=== PATIENT | male | born 1960 | race Caucasian/White ===

== ENCOUNTER 2020-06-07 13:48 | Emergency (ER) | payer OTHER ==
[~2020-06-07] VITALS: Ht 170.2 cm; Wt 95.0 kg
[2020-06-07 13:55] VITALS: BP 139/90
--- NOTE | 2020-06-07 14:14 | PHYS DOC ---
Past History Past Medical History: Hypertension, Other Additional Past Medical Histor: had a run of SVT in Feb. (TERI PARSON ASSOCIATE PASTOR) Past Surgical History: No Surgical History (TERI PARSON ASSOCIATE PASTOR) Alcohol Use: Occasionally (TERI PARSON ASSOCIATE PASTOR) Adult General Chief Complaint Chief Complaint: RIB PAIN HPI HPI Patient is a 59 year old male who presents with tripped onto wooden stairs and landed on his left side injuring his left lower and left ribs. He states it hurts to take a deep breath. He denies hitting his head, loss of consciousness, dizziness, chest pain, shortness of breath, abdominal pain, nausea, vomiting, vision changes, focal weakness, numbness or tingling, neck pain, back pain, headache. He rates his left rib pains a 6 out of 10 at its aching type pain. He states it hurts mostly with movement. Patient has a history of SVT and hypertension. He takes metoprolol daily. (TERI PARSON ASSOCIATE PASTOR) Review of Systems Review of Systems Constitutional: Denies fever or chills [] Eyes: Denies change in visual acuity, redness, or eye pain [] HENT: Denies nasal congestion or sore throat [] Respiratory: Denies cough or shortness of breath. + Pain with breathing due to r ib pain [] Cardiovascular: No additional information not addressed in HPI [] GI: Denies abdominal pain, nausea, vomiting, bloody stools or diarrhea [] : Denies dysuria or hematuria [] Musculoskeletal: + Left lower back pain or joint pain. + Left ribs [] Integument: Denies rash or skin lesions [] Neurologic: Denies headache, focal weakness or sensory changes [] Endocrine: Denies polyuria or polydipsia [] All other systems were reviewed and found to be within normal limits, except as documented in this note. (TERI PARSON ASSOCIATE PASTOR) Physical Exam Physical Exam Constitutional: Well developed, well nourished, no acute distress, non-toxic appearance. [] HENT: Normocephalic, atraumatic, bilateral external ears normal, oropharynx moist, no oral exudates, nose normal. [] Eyes: PERRLA, EOMI, conjunctiva normal, no discharge. [] Neck: Normal range of motion, no tenderness, supple, no stridor. [] Cardiovascular:Heart rate regular rhythm, no murmur [] Lungs & Thorax: Bilateral breath sounds clear to auscultation [] Abdomen: Bowel sounds normal, soft, no tenderness, no masses, no pulsatile masses. [] Skin: Warm, dry, no erythema, no rash. [] Back: No tenderness, no CVA tenderness. [] Extremities: No tenderness, no cyanosis, no clubbing, ROM intact, no edema. [] Neurologic: Alert and oriented X 3, normal motor function, normal sensory function, no focal deficits noted. [] Psychologic: Affect normal, judgement normal, mood normal. Normal physical exam [] (TERI PARSON APRN) Current Patient Data Vital Signs Vital Signs Date Time Temp Pulse Resp B/P (MAP) Pulse Ox O2 Delivery O2 Flow Rate FiO2 06/07/20 13:55 98.1 70 16 139/90 (106) 98 Room Air (TERI PARSON APRN) EKG EKG [] (TERI PARSON APRN) Radiology/Procedures Radiology/Procedures [] Impressions: [place] [address] IMAGING REPORT Signed PATIENT: CODEY ZARCO EACCOUNT: [id number] : 1960 LOCATION: ER AGE: 59 SEX: M EXAM STATUS: REG ER ORD. PHYSICIAN: TERI PARSON APRN REASON: Fall, left mid rib pain PROCEDURE: RIBS LEFT AND PA CHEST EXAM: Chest and left ribs, 4 views. HISTORY: Fall. Pain. COMPARISON: None. FINDINGS: A frontal view of the chest and 3 views of the left ribs are obtained. There is no infiltrate, pleural effusion or pneumothorax. The heart is normal in size. No acute rib fracture is seen. IMPRESSION: No acute pulmonary or osseous finding. Electronically signed by: Corina Álvarez MD (06/07/2020 2:33 PM) [id number] DICTATED AND SIGNED BY: CORINA ÁLVAREZ MD DATE: 06/07/20 7737 CC: TERI PARSON APRN; PCP,NO ~MTH0 [address] [address] IMAGING REPORT Signed PATIENT: CODEY ZARCO EACCOUNT: [id number] : 1960 LOCATION: ER AGE: 59 SEX: M EXAM STATUS: REG ER ORD. PHYSICIAN: TERI PARSON APRN REASON: Fall; lower back, left hip and pelvis pain PROCEDURE: LUMBAR SPINE MIN 4V EXAM: Lumbar spine, 5 views. HISTORY: Pain. COMPARISON: None. FINDINGS: 5 views of the lumbar spine are obtained. There is no listhesis. The vertebral bodies are normal in height. There is multilevel endplate remodeling. There is bilateral nephrolithiasis. IMPRESSION: Mild multilevel degenerative change. No acute osseous finding. Electronically signed by: Corina Álvarez MD (06/07/2020 2:32 PM) [id number] DICTATED AND SIGNED BY: CORINA ÁLVAREZ MD DATE: 06/07/201431 CC: TERI PARSON APRN; PCP,NO ~MTH0 [address] [address] IMAGING REPORT Signed PATIENT: CODEY ZARCO EACCOUNT: [id number] : 1960 LOCATION: ER AGE: 59 SEX: M EXAM STATUS: REG ER ORD. PHYSICIAN: TERI PARSON APRN REASON: Fall; lower back, left hip and pelvis pain PROCEDURE: HIP LEFT 2V WITH PELVIS EXAM: Pelvis and left hip, 3 views. HISTORY: Pain. COMPARISON: None. FINDINGS: A frontal view of the pelvis and 2 views of the left hip are obtained. There is no fracture, dislocation or subluxation. There is mild subchondral sclerosis and marginal spurring involving the femoral heads IMPRESSION: Mild bilateral hip osteoarthritis. No acute osseous finding. Electronically signed by: Corina Álvarez MD (06/07/2020 2:32 PM) [id number] DICTATED AND SIGNED BY: CORINA ÁLVAREZ MD DATE: 06/07/20 1431 CC: TERI PARSON APRN; PCP,NO ~MTH0 0 (TERI PASRON APRN) Heart Score C/O Chest Pain: No Risk Factors: Risk Factors: DM, Current or recent (<one month) smoker, HTN, HLP, family history of CAD, obesity. Risk Scores: Risk Factors: DM, Current or recent (<one month) smoker, HTN, HLP, family history of CAD, obesity. (TERI PARSON APRN) Course & Med Decision Making Course & Med Decision Making Pertinent Labs and Imaging studies reviewed. (See chart for details) See HPI. Alert and oriented x4. Ambulatory with a steady gait. Speaks in full senses. When palpating over ribs there is no crepitus, subcutaneous emphysema or deformities or bruising. No tenderness with palpation. Left lower back palpation there is no tenderness. No focal bony spinal tenderness. Lungs are clear to auscultation all lobes. Skin pink warm and dry. No extremity edema or deformities. No joint swelling or deformities of bruising. No lacerations or abrasions. Abdomen is soft and nontender. No pain over chest with palpation. Full range motion of his neck. PERRLA. Patient is given hydrocodone in the ED. [] (TERI PARSON APRN) Course & Med Decision Making I oversaw on the above date of service of this patient and discussed the care with the WOOD LAST MAKER. I agree with the findings, plan of care, and disposition as documented. Electronically signed, Elizabeth Jackson DO (ELIZABETH JACKSON DO) Earnest Disclaimer Earnest Disclaimer This electronic medical record was generated, in whole or in part, using a voice recognition dictation system. (TERI PARSON APRN) Departure Departure: Impression: Primary Impression: Rib pain on left side Additional Impressions: Back pain Fall Hip pain, left Disposition: 01 DC HOME SELF CARE/HOMELESS Condition: STABLE Referrals: PCP,NO (PCP) Patient Instructions: Back Pain, Adult, Fall Prevention and Home Safety, [id number], Incentive Spirometer, Rib Contusion Additional Instructions: Follow-up with your primary care provider if needed. Use ice and heating pad. Rest for the next couple of days. Take medications as prescribed. If you begin having focal weakness or numbness and tingling or intractable back pain return to the emergency room. Scripts Hydrocodone/Acetaminophen (Hydrocodone-Acetamin 5-325 mg) 1 Each Tablet 1 EACH PO Q6HRS, #10 TAB Prov: TERI PARSON APRN 06/07/20 Ibuprofen (IBUPROFEN) 800 Mg Tablet 1 TAB PO TID for 5 Days, #15 TAB Prov: TERI PARSON APRN 06/07/20 Cyclobenzaprine Hcl (CYCLOBENZAPRINE HCL) 5 Mg Tablet 1 TAB PO TID, #21 TAB Prov: TERI PARSON APRN 06/07/20 Problem Qualifiers Additional Impressions: Back pain Back pain location: low back pain Chronicity: acute Back pain laterality: left Sciatica presence: without sciatica Qualified Codes: M54.5 - Low back pain Fall Encounter type: initial encounter Qualified Codes: W19.XXXA - Unspecified fall, initial encounter TERI PARSON APRN Jun 07, 2020 14:14 ELIZABETH JACKSON DO Jun 08, 2020 06:49
[2020-06-07] MEDS ORDERED: HYDROcodone/APAP 5/325MG 1 TAB TABLET PO ONE (14:15)
--- NOTE | 2020-06-07 14:34 | RAD ---
EXAM: Pelvis and left hip, 3 views. HISTORY: Pain. COMPARISON: None. FINDINGS: A frontal view of the pelvis and 2 views of the left hip are obtained. There is no fracture , dislocation or subluxation. There is mild subchondral sclerosis and marginal spurring involving the femoral heads IMPRESSION: Mild bilateral hip osteoarthritis. No acute osseous finding. Electronically signed by: Corina Howell MD (06/07/2020 2:32 PM) [id number]
--- NOTE | 2020-06-07 14:35 | RAD ---
EXAM: Lumbar spine, 5 views. HISTORY: Pain. COMPARISON: None. FINDINGS: 5 views of the lumbar spine are obtained. There is no listhesis. The vertebral bodies are n ormal in height. There is multilevel endplate remodeling. There is bilateral nephrolithiasis. IMPRESSION: Mild multilevel degenerative change. No acute osseous finding. Electronically signed by: Corina Howell MD (06/07/2020 2:32 PM) [id number]
--- NOTE | 2020-06-07 14:36 | RAD ---
EXAM: Chest and left ribs, 4 views. HISTORY: Fall. Pain. COMPARISON: None. FINDINGS: A frontal view of the chest and 3 views of the left ribs are obtained. There is no infiltra te, pleural effusion or pneumothorax. The heart is normal in size. No acute rib fracture is seen. IMPRESSION: No acute pulmonary or osseous finding. Electronically signed by: Corina Howell MD (06/07/2020 2:33 PM) [id number]
[2020-06-07] MEDS ORDERED: HYDR-2759 PO (14:47)
[2020-06-07] MEDS ORDERED: IBUP800T19 PO (14:47)
[2020-06-07] MEDS ORDERED: CYCL5TAB PO (14:47)
[2020-06-07 15:08] LABS: CLARITY,URINE CLEAR; COLOR,URINE STRAW
[2020-06-07 15:09] LABS: BILIRUBIN,URINE NEG (NEG); GLUCOSE,URINE NEG (NEG); NITRITE,URINE NEG (NEG); UROBILINOGEN,URINE 0.2 mg/dL (0.2 mg/dL)
[2020-06-07 15:11] LABS: BACTERIA,URINE 0 /HPF (0-FEW); RBC,URINE 0 /HPF (0-2); WBC,URINE OCC /HPF (0-4)
== END 2020-06-07 15:30 | disposition home or self-care (01) ==
LOC: ER 13:48
DX: R07.81 Pleurodynia (principal); M54.5 Low back pain; M25.552 Pain in left hip; G89.11 Acute pain due to trauma; I10 Essential (primary) hypertension; N20.0 Calculus of kidney; M16.0 Bilateral primary osteoarthritis of hip; R10.2 Pelvic and perineal pain; W18.39XA Other fall on same level, initial encounter; Y93.89 Activity, other specified; Y92.89 Other specified places as the place of occurrence of the external cause; Y99.8 Other external cause status
CPT/HCPCS: 71101; 72110; 73502; 81001; 99284